=== PATIENT | male | born 1955 | race Caucasian/White ===

== ENCOUNTER → 2021-06-24 15:21 | Outpatient (BNVA) | payer BC, SELFPAY | PROVIDERS: Visit Provider Urology | DX: E29.1 Testicular hypofunction (principal); N52.01 Erectile dysfunction due to arterial insufficiency; N40.1 Benign prostatic hyperplasia with lower urinary tract symptoms; R35.1 Nocturia | CPT/HCPCS: 51798 ==

== ENCOUNTER → 2021-12-24 15:30 | Outpatient (BNVA) | payer BC, SELFPAY | PROVIDERS: PCP Internal Medicine; Visit Provider Urology | DX: E29.1 Testicular hypofunction (principal); N52.01 Erectile dysfunction due to arterial insufficiency | CPT/HCPCS: 51798 ==

== ENCOUNTER 2022-07-03 09:45 | Outpatient (AMB) | payer BC, SELFPAY ==
--- NOTE | 2022-07-03 09:55 | A.OFFVIS_ITS ---
Intake Intake Visit Reasons: 6 Months LABS(set) Intake Note: Patient is present for Telephone Follow up Urology Med: Testosterone, Sildenafil Blood Thinner: None Client Delivery Specialist Required: No Allergies No Known Allergies Allergy (Verified 03/03/23 09:24) HPI HPI Comments History of Present Illness Details Mr Bird is a very pleasant [place]ian male. They are a patient of Dr San. They are seen in the office today for the following urologic conditions. - Hypogonadism Telemedicine Evaluation 15 min Consultation D[employer] Katie Video attempted Last T is a little lower Double checked use of testosterone Had been using 0.3 cc Increased to 0.4 cc Repeat labs in 6 months Repeat prescription refilled as well sildenafil Hypogonadism:? Stable with current therapy Continue with weekly testosterone administration Review in 6 months with lab work ? He presents today for?further evaluation and followup of his hypogonadism, ?- prior evaluation previously with Dr. San. Testosterone approximately 250. Poor respondent to testosterone creams..? Initial symptoms include? erectile dysfunction ?Yes ? decreased libido ?Yes ? change in mood/depression ?Yes ? in muscle size/strength ?Yes ? increased fatigue/malaise ?Yes ? increased abdominal fat ?No ? tender breasts/gynecomastia ?No ? hair loss ?No ? osteopenia ?No ? The onset of symptoms has been?gradual, over the past few years.? Erectile status?baseline ARJUN Score, nocturnal erections occur but are not comparable to sexual stimulation.? Associate conditions include? obstructive sleep apnea ?No ? CAD ?No ? obesity ?No ? stress - financial, family, employment ?No ? heavy alcohol or illicit drug use ?No ? other ? Thyroid medication ? Laboratory results?baseline , testosterone < 250 ?- Feb 2016 , testosterone 295/344, , estradiol 16, , calculated bioavailable testosterone 150. Thyroid intact ?Testosterone - 04/19 384, 1 ?08/20 156,?09/18 267,?04/20 247 ?01/19 T 94, PSA 1.6, 07/23 T 842 PSA 7.2, 01/20 T 500, PSA 1.5. 12/24 T 260 PSA 0.5 47 - ? Current therapy includes?injectable exogenous testosterone - 0.35 2x per week.? Prior therapy includes?testosterone, injectable.? Diagnosis based on history and laboratory results?combined testicular insufficiency.? Therapeutic plan?Will test T levels in 6 months. Rx for TB syringes.? [facility] Medical History Elevated PSA Erectile dysfunction due to arterial insufficiency Hypogonadism in male Review of Systems Const All systems reviewed & are unremarkable except as noted in HPI and below Reports no additional complaints Resp Reports no additional complaints GI Reports no additional complaints Reports as per HPI Musc Reports no additional complaints Physical Exam Telemedicine evaluation Appropriate responses Regular breathing rate and rhythm HEENT Head: Yes normal to inspection Ears: hearing grossly normal bilaterally Eyes General: appearance normal, both eyes and all related structures Neck Neck: Yes normal visual inspection Chest Chest palpation & inspection: normal inspection of the chest Resp Effort & Inspection: normal respiratory effort and able to speak in complete sentences Assessment & Plan Assessment & Plan (1) Nocturia associated with benign prostatic hyperplasia: Code(s): N40.1 - Benign prostatic hyperplasia with lower urinary tract symptoms; R35.1 - Nocturia (2) Erectile dysfunction due to arterial insufficiency: Code(s): N52.01 - Erectile dysfunction due to arterial insufficiency Plan Low test testosterone Orders: Orders Testosterone, Total 6 Months E29.1 - Testicular hypofunction Complete Blood Count no Diff 6 Months E29.1 - Testicular hypofunction Prostate Specific Antigen 6 Months E29.1 - Testicular hypofunction Medications: New tadalafil 5 mg PO DAILY 90 tabs 0RF sexual activity 90 days Refilled testosterone cypionate (Depo-Testosterone) 80 mg (0.4 mL) subcut QWEEK 2 mL 5RF 4 weeks E29.1 - Testicular hypofunction, [id number] Patient Instructions: Imaging studies, laboratory and physical exam results were discussed and reviewed in detail. No major barriers to patient understanding were identified. An opportunity to ask questions regarding the treatment plan was provided. All questions were answered. The patient expressed understanding and agreement with the above treatment plan. The patient is aware they should contact our office by phone for worsening of their current condition or the appearance of new urologic symptoms. Compliance is encouraged with any medications and followup testing that is ordered. It is a privilege to participate in the urologic care of your patient. If you have any questions or concerns regarding treatment for the above conditions, or other urologic issues, please do not hesitate to contact me. The office telephone contact is [phone]. This note is constructed using voice recognition software. While every effort has been made to ensure accuracy potato chip maker errors may have been included. Yours sincerely, Dr Aldo Torres MD, [facility] - Urology Providers of Expert, Compassionate Care for the Genitourinary System Telehealth Telehealth Location of provider rendering services: practice address Location of patient: address on file Patient Identification confirmed using: Name, : Yes Telehealth method: video Patient verbally consented to treatment: Yes Patient verbally consented to billing insurance company: Yes Patient informed of any privacy concerns related to visit: Yes Coding Level of Care Code Tele Est Pt Level 3 (60845) Diagnoses Nocturia associated with benign prostatic hyperplasia N40.1; R35.1 Erectile dysfunction due to arterial insufficiency N52.01
== END 2022-07-03 12:34 | disposition home or self-care (01) ==
LOC: HO.HUSH 09:45
PROVIDERS: PCP Internal Medicine; Visit Provider Urology
DX: N40.1 Benign prostatic hyperplasia with lower urinary tract symptoms (principal); R35.1 Nocturia; N52.01 Erectile dysfunction due to arterial insufficiency
CPT/HCPCS: 99214

== ENCOUNTER → 2022-07-03 09:45 | Outpatient (BNVA) | payer BC, SELFPAY | PROVIDERS: PCP Internal Medicine; Visit Provider Urology | DX: Z13.89 Encounter for screening for other disorder (principal) ==

== ENCOUNTER 2023-03-03 09:15 | Outpatient (AMB) | payer MEDICARE, BC, SELFPAY ==
--- NOTE | 2023-03-03 09:23 | A.OFFVIS_ITS ---
Intake Intake Visit Reasons: 6M LABS(set) Intake Note: Patient is present for Telephone LABS Urology Med: Sildenafil, Tadalafil, Testosterone Antibiotic Allergy: None Blood Thinner: None Pharmacy: [facility] Allergies No Known Allergies Allergy (Verified 03/03/23 09:24) Medication List - Last Reconciled 03/03/23 by Aldo Torres MD ciclopirox 0.77% 1 appl topical DAILY levothyroxine 137 mcg PO DAILY needle (disp) 22 G (BD Regular [place]vel [place]) For testosterone injection weekly needle (disp) 25 gauge (BD Regular Bevel [place]) As directed - for testosterone subcutaneous injection syringe (disposable) (BD Luer-Arthur Syringe) Testosterone injection weekly syringe with needle (Monoject TB) As directed tadalafil 5 mg PO DAILY 90 days testosterone cypionate (Depo-Testosterone) 80 mg (0.4 mL) subcut QWEEK 4 weeks HPI HPI Comments History of Present Illness Details Mr Bird is a very pleasant [place] male. He is a patient of Dr San. He is seen for the following urologic conditions. - Hypogonadism - erectile dysfunction Telemedicine Evaluation 15 min Consultation [employer] Katie Video attempted Testosterone stable Prescription refilled Switch to daily tadalafil with on demand 10 mg Prescriptions provided Repeat labs in 6 months Hypogonadism:? Stable with current therapy Continue with weekly testosterone administration Review in 6 months with lab work ? He presents today for?further evaluation and followup of his hypogonadism, ?- prior evaluation previously with Dr. San. Testosterone approximately 250. Poor respondent to testosterone creams..? Initial symptoms include? erectile dysfunction ?Yes ? decreased libido ?Yes ? change in mood/depression ?Yes ? in muscle size/strength ?Yes ? increased fatigue/malaise ?Yes ? The onset of symptoms has been?gradual, over the past few years.? Erectile status?baseline ARJUN Score, nocturnal erections occur but are not comparable to sexual stimulation.? Associate conditions include? obstructive sleep apnea ?No ? CAD ?No ? obesity ?No ? stress - financial, family, employment ?No ? heavy alcohol or illicit drug use ?No ? other ? Thyroid medication ? Laboratory results?baseline , testosterone < 250 ?- Feb 2016 , testosterone 295/344, , estradiol 16, , calculated bioavailable testosterone 150. Thyroid intact ?Testosterone - 04/19 384, 1 ?08/20 156,?09/18 267,?04/20 247 ?01/19 T 94, PSA 1.6, 07/23 T 842 PSA 7.2, 01/20 T 500, PSA 1.5. 12/24 T 260 PSA 0.5 47 - ? Current therapy includes?injectable exogenous testosterone - 0.35 2x per week.? Prior therapy includes?testosterone, injectable.? Diagnosis based on history and laboratory results?combined testicular insufficiency.? Therapeutic plan?Will test T levels in 6 months. Rx for TB syringes.? [facility] Medical History Elevated PSA Erectile dysfunction due to arterial insufficiency Hypogonadism in male Review of Systems Const All systems reviewed & are unremarkable except as noted in HPI and below Reports no additional complaints Resp Reports no additional complaints GI Reports no additional complaints Reports as per HPI Musc Reports no additional complaints Physical Exam Telemedicine evaluation Appropriate responses Regular breathing rate and rhythm HEENT Head: Yes normal to inspection Ears: hearing grossly normal bilaterally Eyes General: appearance normal, both eyes and all related structures Neck Neck: Yes normal visual inspection Chest Chest palpation & inspection: normal inspection of the chest Resp Effort & Inspection: normal respiratory effort and able to speak in complete sentences Assessment & Plan Assessment & Plan (1) Hypogonadism in male: Code(s): E29.1 - Testicular hypofunction (2) Erectile dysfunction due to arterial insufficiency: Code(s): N52.01 - Erectile dysfunction due to arterial insufficiency (3) Nocturia associated with benign prostatic hyperplasia: Code(s): N40.1 - Benign prostatic hyperplasia with lower urinary tract symptoms; R35.1 - Nocturia Plan Six month follow-up labs office Orders: Orders Prostate Specific Antigen 6 Months E29.1 - Testicular hypofunction Testosterone, Total 6 Months E29.1 - Testicular hypofunction Complete Blood Count no Diff 6 Months E29.1 - Testicular hypofunction Medications: New tadalafil Take 1 tablet 60 minutes prior to intended activity 10 mg PO ONCE PRN 30 tabs 1RF sexual activity 30 days N52.9 - Male erectile dysfunction, unspecified Refilled testosterone cypionate (Depo-Testosterone) 80 mg (0.4 mL) subcut QWEEK 4 weeks 2 mL 5RF E29.1 - Testicular hypofunction, [id number] syringe (disposable) (BD Luer-Arthur Syringe) Testosterone injection weekly 30 ea 0RF E29.1 - Testicular hypofunction, E34.9 - Endocrine disorder, unspecified needle (disp) 25 gauge (BD Regular [place]vel [place]) As directed - for testosterone subcutaneous injection 30 ea 0RF E29.1 - Testicular hypofunction needle (disp) 22 G (BD Regular Bevel [place]) For testosterone injection weekly 30 ea 0RF E29.1 - Testicular hypofunction, E34.9 - Endocrine disorder, unspecified tadalafil 5 mg PO DAILY 90 days 90 tabs 1RF sexual activity Discontinued testosterone cypionate (Depo-Testosterone) Discontinued Reason: Patient no longer taking 100 mg (0.5 mL) subcut QWEEK 4 weeks 2 mL 5RF E29.1 - Testicular hypofunction, [id number] sildenafil administer 30 minutes to 4 hours before activity Discontinued Reason: Patient Completed Course 25 mg PO DAILY 30 days PRN 30 tabs 5RF sexual activity E29.1 - Testicular hypofunction Patient Instructions: Imaging studies, laboratory and physical exam results were discussed and reviewed in detail. No major barriers to patient understanding were identified. An opportunity to ask questions regarding the treatment plan was provided. All questions were answered. The patient expressed understanding and agreement with the above treatment plan. The patient is aware they should contact our office by phone for worsening of their current condition or the appearance of new urologic symptoms. Compliance is encouraged with any medications and followup testing that is ordered. It is a privilege to participate in the urologic care of your patient. If you have any questions or concerns regarding treatment for the above conditions, or other urologic issues, please do not hesitate to contact me. The office telephone contact is [phone]. This note is constructed using voice recognition software. While every effort has been made to ensure accuracy guidance secretary errors may have been included. Yours sincerely, Dr Aldo Torres MD, [facility] - Urology Providers of Expert, Compassionate Care for the Genitourinary System Telehealth Telehealth Location of provider rendering services: practice address Location of patient: address on file Patient Identification confirmed using: Name, : Yes Telehealth method: video Patient verbally consented to treatment: Yes Patient verbally consented to billing insurance company: Yes Patient informed of any privacy concerns related to visit: Yes Coding Level of Care Code Tele Est Pt Level 4 (98604) Diagnoses Hypogonadism in male E29.1 Erectile dysfunction due to arterial insufficiency N52.01 Nocturia associated with benign prostatic hyperplasia N40.1; R35.1
== END 2023-03-03 10:40 | disposition home or self-care (01) ==
LOC: HO.HUSH 09:15
PROVIDERS: PCP Internal Medicine; Visit Provider Urology
DX: E29.1 Testicular hypofunction (principal); N52.01 Erectile dysfunction due to arterial insufficiency; N40.1 Benign prostatic hyperplasia with lower urinary tract symptoms; R35.1 Nocturia
CPT/HCPCS: 99214

== ENCOUNTER → 2023-03-03 09:15 | Outpatient (BNVA) | payer BC, SELFPAY | PROVIDERS: PCP Internal Medicine; Visit Provider Urology ==

== ENCOUNTER 2023-09-02 09:48 | Outpatient (AMB) | payer MEDICARE, BC, SELFPAY ==
--- NOTE | 2023-09-02 10:14 | A.OFFVIS_ITS ---
Intake Intake Visit Reasons: 6M PSA/Testo/CBC(set) Confirmed Intake Note: Patient presents today for a follow-up Meds- Tadalafil, Testosterone Allergies to Antibiotic- No Known Allergies Blood Thinner- None Post Void Residual: 19 Chemical Tester Required: No Allergies No Known Allergies Allergy (Verified 09/02/23 10:15) Medication List - Last Reconciled 09/02/23 by Aldo Torres MD ciclopirox 0.77% 1 appl topical DAILY levothyroxine 112 mcg PO DAILY levothyroxine 112 mcg PO DAILY needle (disp) 22 G (BD Regular Bevel [place]) For testosterone injection weekly needle (disp) 25 gauge (BD Regular Bevel [place]) As directed - for testosterone subcutaneous injection syringe (disposable) (BD Luer-Arthur Syringe) Testosterone injection weekly syringe with needle (Monoject TB) As directed tadalafil 5 mg PO DAILY 90 days tadalafil 10 mg PO ONCE PRN 30 days testosterone cypionate (Depo-Testosterone) 80 mg (0.4 mL) subcut QWEEK 4 weeks HPI HPI Comments History of Present Illness Details Mr Bird is a very pleasant [place]ian male. He is a patient of Dr San. He is seen for the following urologic conditions. - Hypogonadism - erectile dysfunction Testosterone stable Prescription refilled Still response to daily tadalafil with on demand 10 mg Prescriptions provided Repeat labs in 6 months Hypogonadism:? Stable with current therapy Continue with weekly testosterone administration Review in 6 months with lab work ? He presents today for?further evaluation and followup of his hypogonadism, ?- prior evaluation previously with Dr. San. Testosterone approximately 250. Poor respondent to testosterone creams..? Initial symptoms include? erectile dysfunction ?Yes ? decreased libido ?Yes ? change in mood/depression ?Yes ? in muscle size/strength ?Yes ? increased fatigue/malaise ?Yes ? The onset of symptoms has been?gradual, over the past few years.? Erectile status?baseline ARJUN Score, nocturnal erections occur but are not comparable to sexual stimulation.? Associate conditions include? obstructive sleep apnea ?No ? CAD ?No ? obesity ?No ? stress - financial, family, employment ?No ? heavy alcohol or illicit drug use ?No ? other ? Thyroid medication ? Laboratory results?baseline , testosterone < 250 ?- Feb 2016 , testosterone 295/344, , estradiol 16, , calculated bioavailable testosterone 150. Thyroid intact ?Testosterone - 04/19 384, 1 ?08/20 156,?09/18 267,?04/20 247 ?01/19 T 94, PSA 1.6, 07/23 T 842 PSA 7.2, 01/20 T 500, PSA 1.5. 12/24 T 260 PSA 0.5 47, 08/28 T 265 - ? Current therapy includes?injectable exogenous testosterone - 0.35 2x per week.? Prior therapy includes?testosterone, injectable.? Diagnosis based on history and laboratory results?combined testicular insufficiency.? Therapeutic plan?Will test T levels in 6 months. Rx for TB syringes.? [facility] Medical History Elevated PSA Erectile dysfunction due to arterial insufficiency Hypogonadism in male Review of Systems Const Denies chills and Denies fever(s) Card Reports no additional complaints and Denies syncope Resp Denies cough GI Denies abdominal pain and Denies heartburn Reports as per HPI and Denies change in libido Neuro Denies syncope Psych Denies change in libido Endo Denies change in libido Physical Exam Const General: cooperative, healthy appearing, comfortable and no acute distress Orientation/consciousness: patient oriented x3 HEENT Face and sinus: Yes normal facial exam Mouth: moist mucous membranes Neck Neck: Yes normal visual inspection, Yes full ROM and Yes trachea midline Chest Chest palpation & inspection: normal inspection of the chest Resp Effort & Inspection: normal respiratory effort, able to speak in complete sentences and no respiratory distress GI Inspection: Yes normal to inspection Back/Spine/Pelvis Cervical Spine: normal cervical lordosis Thoracic/Lumbar Spine: thoracic and lumbar spine normal to inspection Skin General skin exam: no rashes or lesions noted Neuro General: patient oriented x3, gait normal, tone normal and moves all extremities Extrem General: Yes normal to inspection and Yes capillary refill normal Office Procedures Post Void Residual Post Residual Void Post Void Residual (PVR): 19 [id number]-[id number] Void Residual by ultrasound Assessment & Plan Assessment & Plan (1) Nocturia associated with benign prostatic hyperplasia: Code(s): N40.1 - Benign prostatic hyperplasia with lower urinary tract symptoms; R35.1 - Nocturia (2) Erectile dysfunction due to arterial insufficiency: Code(s): N52.01 - Erectile dysfunction due to arterial insufficiency (3) Hypogonadism in male: Code(s): E29.1 - Testicular hypofunction Plan Six-month follow-up labs tele Orders: Orders Complete Blood Count no Diff 6 Months E29.1 - Testicular hypofunction AMB Post Void Residual by ultrasound Today R33.9 - Retention of urine, unspecified Prostate Specific Antigen 6 Months E29.1 - Testicular hypofunction Testosterone, Total 6 Months E29.1 - Testicular hypofunction Patient Instructions: Imaging studies, laboratory and physical exam results were discussed and reviewe d in detail. No major barriers to patient understanding were identified. An opportunity to ask questions regarding the treatment plan was provided. All questions were answered. The patient expressed understanding and agreement with the above treatment plan. The patient is aware they should contact our office by phone for worsening of their current condition or the appearance of new urologic symptoms. Compliance is encouraged with any medications and followup testing that is ordered. It is a privilege to participate in the urologic care of your patient. If you have any questions or concerns regarding treatment for the above conditions, or other urologic issues, please do not hesitate to contact me. The office telephone contact is [phone]. This note is constructed using voice recognition software. While every effort has been made to ensure accuracy inspector watch assembly errors may have been included. Yours sincerely, Dr Aldo Torres MD, [facility] - Urology Providers of Expert, Compassionate Care for the Genitourinary System Coding Level of Care Code Est Pt Level 4 (42385) Diagnoses Nocturia associated with benign prostatic hyperplasia N40.1; R35.1 Erectile dysfunction due to arterial insufficiency N52.01 Hypogonadism in male E29.1 CPT Codes Post Residual Void - PVR CPT Code: 12035-Cmxg Void Residual by ultrasound ([id number])
== END 2023-09-02 10:33 | disposition home or self-care (01) ==
PROVIDERS: PCP Internal Medicine; Visit Provider Urology
DX: N40.1 Benign prostatic hyperplasia with lower urinary tract symptoms (principal); R35.1 Nocturia; N52.01 Erectile dysfunction due to arterial insufficiency; E29.1 Testicular hypofunction
CPT/HCPCS: 99213

== ENCOUNTER → 2023-09-02 09:48 | Outpatient (BNVA) | payer MEDICARE, BC, SELFPAY | PROVIDERS: PCP Internal Medicine; Visit Provider Urology | DX: E29.1 Testicular hypofunction (principal); N40.1 Benign prostatic hyperplasia with lower urinary tract symptoms; R33.8 Other retention of urine; R35.1 Nocturia; N52.01 Erectile dysfunction due to arterial insufficiency | CPT/HCPCS: 51798; 99212 ==

== ENCOUNTER 2024-04-18 08:53 | Outpatient (AMB) | payer MEDICARE, BC, SELFPAY ==
--- NOTE | 2024-04-18 08:49 | A.OFFVIS_ITS ---
Intake Visit Reasons: PSA/CBC/Testo Follow Up(testo pending)[facility] Intake Note: Patient is present for PSA/CBC/TESTO F/U Urology Medication:TADALAFIL, LEVOTHYROXINE Antibiotic Allergy:NONE Blood Thinner:NONE Telephone Station Repairer Required: No Allergies No Known Allergies Allergy (Verified 04/18/24 08:50) Medication List - Last Reconciled 04/18/24 by Aldo Torres MD ciclopirox 0.77% 1 appl topical DAILY levothyroxine 112 mcg PO DAILY levothyroxine 112 mcg PO DAILY needle (disp) 22 G (BD Regular [place]) For testosterone injection weekly needle (disp) 25 gauge (BD Regular [place]vel [place]) As directed - for testosterone subcutaneous injection syringe (disposable) (BD Luer-Arthur Syringe) Testosterone injection weekly syringe with needle (Monoject TB) As directed tadalafil 10 mg PO ONCE PRN 30 days tadalafil 5 mg PO DAILY 90 days testosterone cypionate (Depo-Testosterone) 80 mg (0.4 mL) subcut QWEEK 4 weeks HPI Comments Details: Mr Bird is a very pleasant Japanese male. He is a patient of Dr San. He is seen for the following urologic conditions. - Hypogonadism - erectile dysfunction Telemedicine Evaluation 15 min Consultation [facility] Katie Video Testosterone stable Prescription refilled Still response to daily tadalafil with on demand 10 mg Prescriptions provided Repeat labs in 6 months Hypogonadism:? Stable with current therapy Continue with weekly testosterone administration Review in 6 months with lab work ? He presents today for?further evaluation and followup of his hypogonadism, ?- prior evaluation previously with Dr. San. Testosterone approximately 250. Poor respondent to testosterone creams..? Initial symptoms include? erectile dysfunction ?Yes ? decreased libido ?Yes ? change in mood/depression ?Yes ? in muscle size/strength ?Yes ? increased fatigue/malaise ?Yes ? The onset of symptoms has been?gradual, over the past few years.? Erectile status?baseline ARJUN Score, nocturnal erections occur but are not comparable to sexual stimulation.? Associate conditions include? obstructive sleep apnea ?No ? CAD ?No ? obesity ?No ? stress - financial, family, employment ?No ? heavy alcohol or illicit drug use ?No ? other ? Thyroid medication ? Laboratory results?baseline , testosterone < 250 ?- Feb 2016 , testosterone 295/344, , estradiol 16, , calculated bioavailable testosterone 150. Thyroid intact ?Testosterone - 04/19 384, 1 ?08/20 156,?09/18 267,?04/20 247 ?01/19 T 94, PSA 1.6, 07/23 T 842 PSA 7.2, 01/20 T 500, PSA 1.5. 12/24 T 260 PSA 0.5 47, 08/28 T 265, 04/27 pending T - ? Current therapy includes?injectable exogenous testosterone - 0.35 2x per week.? Prior therapy includes?testosterone, injectable.? Diagnosis based on history and laboratory results?combined testicular insufficiency.? Therapeutic plan?Will test T levels in 6 months. Rx for TB syringes.? [facility] Medical History Elevated PSA Erectile dysfunction due to arterial insufficiency Hypogonadism in male Review of Systems Const All systems reviewed & are unremarkable except as noted in HPI and below Reports no additional complaints Resp Reports no additional complaints GI Reports no additional complaints Reports as per HPI Musc Reports no additional complaints Physical Exam Telemedicine evaluation Appropriate responses Regular breathing rate and rhythm HEENT Head: Yes normal to inspection Ears: hearing grossly normal bilaterally Eyes General: appearance normal, both eyes and all related structures Neck Neck: Yes normal visual inspection Chest Chest palpation & inspection: normal inspection of the chest Resp Effort & Inspection: normal respiratory effort and able to speak in complete sentences Telehealth Telehealth Location of provider rendering services: practice address Location of patient: address on file Patient Identification confirmed using: Name, : Yes Telehealth method: voice only Patient verbally consented to treatment: Yes Patient verbally consented to billing insurance company: Yes Patient informed of any privacy concerns related to visit: Yes Assessment & Plan Assessment & Plan (1) Hypogonadism in male: Code(s): E29.1 - Testicular hypofunction Category: Medical (2) Erectile dysfunction due to arterial insufficiency: Code(s): N52.01 - Erectile dysfunction due to arterial insufficiency Category: Medical (3) Nocturia associated with benign prostatic hyperplasia: Code(s): N40.1 - Benign prostatic hyperplasia with lower urinary tract symptoms; R35.1 - Nocturia Category: Medical Plan Six-month follow-up Orders: Orders Prostate Specific Antigen 6 Months E29.1 - Testicular hypofunction Testosterone, Total 6 Months E29.1 - Testicular hypofunction Complete Blood Count no Diff 6 Months E29.1 - Testicular hypofunction Medications: Refilled tadalafil Take 1 tablet 60 minutes prior to intended activity 10 mg PO ONCE 30 days PRN 30 tabs 1RF sexual activity N52.9 - Male erectile dysfunction, unspecified tadalafil 5 mg PO DAILY 90 days 90 tabs 1RF sexual activity E29.1 - Testicular hypofunction testosterone cypionate (Depo-Testosterone) Dispose of partial filled vial after injection 80 mg (0.4 mL) subcut QWEEK 4 weeks 4 mL 5RF E29.1 - Testicular hypofunction, [id number] Patient Instructions: Imaging studies, laboratory and physical exam results were discussed and reviewed in detail. No major barriers to patient understanding were identified. An opportunity to ask questions regarding the treatment plan was provided. All questions were answered. The patient expressed understanding and agreement with the above treatment plan. The patient is aware they should contact our office by phone for worsening of their current condition or the appearance of new urologic symptoms. Compliance is encouraged with any medications and followup testing that is ordered. It is a privilege to participate in the urologic care of your patient. If you have any questions or concerns regarding treatment for the above conditions, or other urologic issues, please do not hesitate to contact me. The office telephone contact is [phone]. This note is constructed using voice recognition software. While every effort has been made to ensure accuracy solicitor patent errors may have been included. Yours sincerely, Dr Aldo Torres MD, [facility] - Urology Providers of Expert, Compassionate Care for the Genitourinary System Coding Level of Care Code Tele Est Pt Level 3 (82991) Diagnoses Hypogonadism in male E29.1 Erectile dysfunction due to arterial insufficiency N52.01 Nocturia associated with benign prostatic hyperplasia N40.1; R35.1
== END 2024-04-18 13:40 | disposition home or self-care (01) ==
LOC: HO.HUSH 08:53
PROVIDERS: PCP Internal Medicine; Visit Provider Urology
DX: E29.1 Testicular hypofunction (principal); N52.01 Erectile dysfunction due to arterial insufficiency; N40.1 Benign prostatic hyperplasia with lower urinary tract symptoms; R35.1 Nocturia
CPT/HCPCS: 99442

== ENCOUNTER → 2024-04-18 08:53 | Outpatient (BNVA) | payer MEDICARE, BC, SELFPAY | PROVIDERS: PCP Internal Medicine; Visit Provider Urology ==

== ENCOUNTER 2024-10-24 10:30 | Outpatient (AMB) | payer MEDICARE, BC, SELFPAY ==
--- NOTE | 2024-10-24 10:50 | A.OFFVIS_ITS ---
Intake Visit Reasons: 6M PSA/CBC/Testo Follow Up(testo pending)[facility] Intake Note: Adria 69 yr old male presents today for his 6 month follow up visit s/p PSA, CBC and testosterone. Allergies No Known Allergies Allergy (Verified 10/24/24 10:54) HPI Comments Details: Mr Bird is a very pleasant [place] male. He is a patient of Dr San. He is seen for the following urologic conditions. - Hypogonadism - erectile dysfunction Discussed results Has needle phobia will trial testosterone gel again Has been waking at night - trial tamsulosin Also noted with inability to maintain erection Increase on demand tadalafil to 20 mg Lower urinary tract symptoms Nocturia x3 No prior medications Hypogonadism:? Stable with current therapy Continue with weekly testosterone administration Review in 6 months with lab work ? He presents today for?further evaluation and followup of his hypogonadism, ?- prior evaluation previously with Dr. San. Testosterone approximately 250. Poor respondent to testosterone creams..? Initial symptoms include? erectile dysfunction ?Yes ? decreased libido ?Yes ? change in mood/depression ?Yes ? in muscle size/strength ?Yes ? increased fatigue/malaise ?Yes ? The onset of symptoms has been?gradual, over the past few years.? Erectile status?baseline ARJUN Score, nocturnal erections occur but are not comparable to sexual stimulation.? Laboratory results?baseline , testosterone < 250 ?- Feb 2016 , testosterone 295/344, , estradiol 16, , calculated bioavailable testosterone 150. Thyroid intact ?Testosterone - 04/19 384, 1 ?08/20 156,?09/18 267,?04/20 247 ?01/19 T 94, PSA 1.6, 07/23 T 842 PSA 7.2, 01/20 T 500, PSA 1.5. 12/24 T 260 PSA 0.5 47, 08/28 T 265, 04/27 pending T. 08/29 281 0.9 43 - ? Current therapy includes?injectable exogenous testosterone - 0.35 2x per week.? Prior therapy includes?testosterone, injectable.? Diagnosis based on history and laboratory results?combined testicular insufficiency.? - Trial AndroGel repeat [facility] Medical History Elevated PSA Erectile dysfunction due to arterial insufficiency Hypogonadism in male Review of Systems Const Denies chills and Denies fever(s) Card Reports no additional complaints and Denies syncope Resp Denies cough GI Denies abdominal pain and Denies heartburn Reports as per HPI and Denies change in libido Neuro Denies syncope Psych Denies change in libido Endo Denies change in libido Physical Exam Const General: cooperative, healthy appearing, comfortable and no acute distress Orientation/consciousness: patient oriented x3 HEENT Face and sinus: Yes normal facial exam Mouth: moist mucous membranes Neck Neck: Yes normal visual inspection, Yes full ROM and Yes trachea midline Chest Chest palpation & inspection: normal inspection of the chest Resp Effort & Inspection: normal respiratory effort, able to speak in complete sentences and no respiratory distress GI Inspection: Yes normal to inspection Back/Spine/Pelvis Cervical Spine: normal cervical lordosis Thoracic/Lumbar Spine: thoracic and lumbar spine normal to inspection Skin General skin exam: no rashes or lesions noted Neuro General: patient oriented x3, gait normal, tone normal and moves all extremities Extrem General: Yes normal to inspection and Yes capillary refill normal Assessment & Plan Assessment & Plan (1) Hypogonadism in male: Code(s): E29.1 - Testicular hypofunction Category: Medical (2) Erectile dysfunction due to arterial insufficiency: Code(s): N52.01 - Erectile dysfunction due to arterial insufficiency Category: Medical (3) Nocturia associated with benign prostatic hyperplasia: Code(s): N40.1 - Benign prostatic hyperplasia with lower urinary tract symptoms; R35.1 - Nocturia Category: Medical Plan Trial Flomax Trial gel Three-month labs tele Orders: Orders Testosterone, Total 3 Months E29.1 - Testicular hypofunction Medications: New tamsulosin (Flomax) 0.4 mg PO BEDTIME 30 tabs 1RF 30 days E29.1 - Testicular hypofunction testosterone apply 2 pumps over max area - alternate shoulders on alternate days 2 pumps topical DAILY 30 days 75 grams 2RF E29.1 - Testicular hypofunction, R79.89 - Other specified abnormal findings of blood chemistry testosterone apply 2 pumps over max area - alternate shoulders on alternate days 3 pumps topical DAILY 150 grams 2RF 30 days E29.1 - Testicular hypofunction, R79.89 - Other specified abnormal findings of blood chemistry Changed From tadalafil Take 1 tablet 60 minutes prior to intended activity 10 mg PO ONCE 30 days PRN 30 tabs 1RF sexual activity N52.9 - Male erectile dysfunction, unspecified To tadalafil Take 1 tablet 60 minutes prior to intended activity 20 mg PO ONCE PRN 30 tabs 1RF sexual activity 30 days N52.9 - Male erectile dysfunction, unspecified Refilled tadalafil 5 mg PO DAILY 90 tabs 1RF sexual activity 90 days E29.1 - Testicular hypofunction Discontinued testosterone cypionate (Depo-Testosterone) Dispose of partial filled vial after injection Discontinued Reason: Patient Completed Course 80 mg (0.4 mL) subcut QWEEK 4 weeks 4 mL 5RF E29.1 - Testicular hypofunction, [id number] Patient Instructions: This note is constructed using voice recognition software. While every effort h as been made to ensure accuracy date night caregiver errors may have been included. Imaging studies, laboratory and physical exam results were discussed and reviewed in detail. No major barriers to patient understanding were identified. An opportunity to ask questions regarding the treatment plan was provided. All questions were answered. The patient expressed understanding and agreement with the above treatment plan. The patient is aware they should contact our office by phone for worsening of their current condition or the appearance of new urologic symptoms. Compliance is encouraged with any medications and followup testing that is ordered. It is a privilege to participate in the urologic care of your patient. If you have any questions or concerns regarding treatment for the above conditions, or other urologic issues, please do not hesitate to contact me. The office telephone contact is [phone]. Sincerely, Dr Aldo Torres MD, [facility] - Urology Compassionate Specialist Care for the Genitourinary System Coding Level of Care Code Est Pt Level 4 (60149) Complex EM visit Add On G2211 Diagnoses Hypogonadism in male E29.1 Erectile dysfunction due to arterial insufficiency N52.01 Nocturia associated with benign prostatic hyperplasia N40.1; R35.1
--- OUTSIDE RECORDS SUMMARY | 2024-10-24 12:15 | XMS_ITS | Clinical Summary ---
Author Organization [facility] Address [address] [place] [address] Care Team Providers Care Rheumatologist Name Role Phone Corwin San MD Primary Care Provider Medical History Medical History Date Comments Asthma DX:Asthma Friedman's palsy DX:Friedman's palsy Eczema DX:Eczema Hearing loss DX:Hearing loss Hypogonadism male DX:Hypogonadis m male Hypothyroidism DX:Hypothyroidis m Class 1 obesity DX:Class 1 obesi ty KRISTIE (obstructive sleep apnea) DX :KRISTIE (obstructive sleep apnea) Perennial allergic rhinitis DX:P erennial allergic rhinitis Positive PPD DX:Positive PPD Right Achilles tendinitis DX:Rig ht Achilles tendinitis Zenker diverticulum DX:Zenker di verticulum Family History Medical History Relation Name Comments Other: cardiovascular disease Father Relation Name Status Comments Father Social History Tobacco Use Types Packs/Day Years Used Date Smoking Tobacco: Never Assessed Sex and Gender Information Value Date Recorded Sex Assigned at Not on file Legal Sex Male 1:50 AM EST Gender Identity Not on file Sexual Orientation Not on file Obstetrics History Plan of Treatment Health Maintenance Due Date Last Done Comments DTaP,Tdap,and Td Vaccines (1 - Tdap) 1973 Pneumococcal Vaccine: 50+ Ye ars (1 of 1 - PCV) 02/04/2004 Zoster Vaccines (1 of 2) 02/04/2004 Abdominal Aortic Aneurysm (A AA) Screen 08/04/2023 Cholesterol Screening (Lipid Panel) 08/04/2023 Colorectal Cancer Screening: Colonoscopy 08/04/2023 Depression Screening 08/04/2023 Falls Risk Assessment 08/04/2023 Hepatitis C Screening 08/04/2023 Social Influencers of Health Screening 08/04/2023 COVID-19 Vaccine (2023-2 5 season) 2024 Influenza Vaccine (Season Ended) 2025 RSV Immunization Adult Patie nts (1 - 1-dose 75+ series) 2029 HIB Vaccines Aged Out No longer eligi ble based on patient's age to complete this topic HPV Vaccines Aged Out No longer eligi ble based on patient's age to complete this topic Hepatitis A Vaccines Aged Out No long er eligible based on patient's age to complete this topic Hepatitis B Vaccines Aged Out No long er eligible based on patient's age to complete this topic IPV Vaccines Aged Out No longer eligi ble based on patient's age to complete this topic MMR Vaccines Aged Out No longer eligi ble based on patient's age to complete this topic Meningococcal ACWY Vaccine Aged Out N o longer eligible based on patient's age to complete this topic Meningococcal B Vaccine Aged Out No l onger eligible based on patient's age to complete this topic RSV Immunization Patients Un michelle 20 months Aged Out No longer eligible b ased on patient's age to complete this topic Varicella Vaccines Aged Out No longer eligible based on patient's age to complete this topic Care Teams Rheumatologist Relationship Specialty Start Date End Date Corwin San MD [address] [facility] [address] [place], [place] PCP - General Internal Medicine 02/25/17
--- OUTSIDE RECORDS SUMMARY | 2024-10-24 12:15 | XMS_ITS ---
Author Name [facility] Organization Unknown Problems Problem Status Onset Date Problem Type Date of Resoluti on Source Chest discomfort active EncounterDiagnosisAct CCT Encounters Encounter Type Encounter Reason Primary Diagnosis Location Date Ambulatory Harvey driscoll MD, [facility] 02/22/2023 Ambulatory Harvey driscoll MD, [facility] 01/17/2023 Ambulatory Harvey driscoll MD, [facility] 01/15/2023 Ambulatory Harvey driscoll MD, [facility] 12/03/2022 [email or web address] Care Team Organization Name Specialty Phone Email Start Date End Da te Harvey Tillman MD, [facility] 10/25[facility]
--- OUTSIDE RECORDS SUMMARY | 2024-10-24 12:15 | XMS_ITS | Clinical Summary ---
Author Organization [facility] Address [address] [place] [address] Care Team Providers Care Conche Operator Name Role Phone Unknown Primary Care Provider [phone] Allergies No known active allergies Medications No known medications Active Problems No known active problems Social History Tobacco Use Types Packs/Day Years Used Date Smoking Tobacco: Never Assessed Sex and Gender Information Value Date Recorded Sex Assigned at Not on file Legal Sex Male 9:29 AM EDT Gender Identity Not on file Sexual Orientation Not on file Last Filed Vital Signs Vital Sign Reading Time Taken Comments Blood Pressure 135/74 10/25/2022 10:13 AM EDT Pulse 75 10/25/2022 10:13 AM EDT Temperature 36.5 ??C (97.7 ??F) 10/25/2022 10:13 AM E DT Respiratory Rate - - Oxygen Saturation 96% 10/25/2022 10:13 AM EDT Inhaled Oxygen Concentration - - Weight 92.1 kg (203 lb) 10/25/2022 10:13 AM EDT Height - - Body Mass Index - - Plan of Treatment Health Maintenance Due Date Last Done Comments Hepatitis C Virus Screening 1955 DTaP/Tdap/Td Vaccines (1 - Tdap) 1973 Colonoscopy 1999 Pneumococcal Vaccines 50+ (1 of 1 - PCV) 02/04/2004 Zoster (Shingles) Vaccine (1 of 2) 02/04/2004 Influenza Vaccine 2024 04/03/2020 COVID-19 Vaccine (3 - 2023-2 5 season) 2024 11/01/2020, 10/04/2020 RSV Vaccine 60 years and older and Patients (1 - 1-dose 75+ series) 2029 Hepatitis B Vaccines Aged Out No long er eligible based on patient's age to complete this [place] [place] [address] MEDICARE PART A & B [facility] Care Teams Conche Operator Relationship Specialty Start Date End Date Unknown Unknow Provider Address PCP - General 10/25/22
--- OUTSIDE RECORDS SUMMARY | 2024-10-24 12:15 | XMS_ITS | Clinical Summary ---
Author Organization [facility] Address [address] [place] [address] Care Team Providers Care Unhairing Machine Operator Name Role Phone Corwin San MD Primary Care Provider [phone] Allergies No known active allergies Medications Medication Sig Dispensed Refills Start Date End Date Status levothyroxine (SYNTHROID, LEVOXYL) tablet 100 mcg Take 100 mcg by mouth daily. 0 10/15/2017 Active sildenafil (REVATIO) 20 MG tablet TAKE 1 OR 2 TABLETS BY MOUTH DAILY NEEDED 0 08/17/2017 Active testosterone cypionate (DEPO-TESTOSTERONE CYPIONATE) injection 200 mg/mL INJECT 1.25ML ONCE A WEEK FOR 30 DAYS 3 08/25/2017 Active levothyroxine (SYNTHROID, LEVOXYL) tablet 137 mcg TAKE 1 TABLET BY MOUTH ONCE A DAY CHECK THYROID LEVEL IN 6 WEEKS 1 06/03/2018 Active Active Problems Problem Noted Date Diagnosed Date Shoulder weakness 07/13/2018 Postop check 02/25/2018 Acute pain of right shoulder 11/24/2017 Social History Tobacco Use Types Packs/Day Years Used Date Smoking Tobacco: Unknown Tobacco Cessation:Counseling Given: Not Answered Alcohol Use Standard Drinks/Week Comments No 0 (1 standard drink = 0.6 oz pur e alcohol) Sex and Gender Information Value Date Recorded Sex Assigned at Male 10/27/2022 1:16 PM EDT Gender Identity Not on file Sexual Orientation Not on file Job Start Date Occupation Industry Not on file Not on file Not on file Last Filed Vital Signs Vital Sign Reading Time Taken Comments Blood Pressure 140/87 10/27/2022 3:04 PM EDT Pulse 71 10/27/2022 3:04 PM EDT Temperature 36.6 ??C (97.9 ??F) 10/27/2022 3:04 PM ED T Respiratory Rate 17 10/27/2022 3:04 PM EDT Oxygen Saturation 95% 10/27/2022 3:04 PM EDT Inhaled Oxygen Concentration - - Weight 92.1 kg (203 lb) 10/27/2022 1:06 PM EDT Height 165.1 cm (5' 5 ) 10/27/2022 1:06 PM EDT Body Mass Index 33.78 10/27/2022 1:06 PM EDT Plan of Treatment Health Maintenance Due Date Last Done Comments Hepatitis C Screening 1955 COVID-19 Vaccine (#1) 1954 Depression Screening 1966 Preventative Health Evaluation 02/04/1972 Colon Cancer Screening (Colonoscopy) 1999 Shingrix-Zoster Vaccine (1 of 2) 02/04/2004 Fall Risk Assessment 2019 Pneumococcal Vaccine (1 of 1 - PCV) 2019 Influenza Vaccine (#1) 2024 2, 04/02/2021, 04/03/2020, Additional history exists DTap / Tdap / Td (2 - Td or Tdap) 01/29/2028 01/28/2018 RSV Adult > 60+ Yrs or (1 - 1-dose 75+ series) 2029 Hepatitis B Vaccines Aged Out No long er eligible based on patient's age to complete this topic RSV Ped < 20 months Aged Out No longe r eligible based on patient's age to complete this topic Care Teams Unhairing Machine Operator Relationship Specialty Start Date End Date Corwin San MD PCP - General Internal Medicine 02/25/17
== END 2024-10-24 11:18 | disposition home or self-care (01) ==
LOC: HO.HUSH 10:30
PROVIDERS: PCP Internal Medicine; Visit Provider Urology
DX: E29.1 Testicular hypofunction (principal); N52.01 Erectile dysfunction due to arterial insufficiency; N40.1 Benign prostatic hyperplasia with lower urinary tract symptoms; R35.1 Nocturia
CPT/HCPCS: 99214; G2211

== ENCOUNTER → 2024-10-24 10:30 | Outpatient (BNVA) | payer MEDICARE, BC, SELFPAY | PROVIDERS: PCP Internal Medicine; Visit Provider Urology | DX: E29.1 Testicular hypofunction (principal); N52.9 Male erectile dysfunction, unspecified; N52.01 Erectile dysfunction due to arterial insufficiency; N40.1 Benign prostatic hyperplasia with lower urinary tract symptoms; R35.1 Nocturia; R79.89 Other specified abnormal findings of blood chemistry | CPT/HCPCS: 99212 ==

== ENCOUNTER 2025-03-06 10:01 | Outpatient (AMB) | payer MEDICARE, BC, SELFPAY ==
--- NOTE | 2025-03-06 10:02 | A.OFFVIS_ITS ---
Intake Visit Reasons: 3m/Testo Intake Note: pt presents today for: telehealth 3mo follow up urology medications: tadalafil, tamsulosin, testosterone blood thinners: none labs done 02/15/25: testo 176 Auto Glass Worker Required: No Accompanied by: Self / Same As Patient Allergies No Known Allergies Allergy (Verified 03/06/25 10:02) HPI Comments Details: Mr Bird is a very pleasant Armenian male. He is a patient of Dr San. He is seen for the following urologic conditions. - Hypogonadism - erectile dysfunction Telemedicine Evaluation 15 min Consultation [employer] Katie Video Six-month follow-up Has been on testosterone gel Tamsulosin for LUTS On demand tadalafil 20 mg Minimal benefit from tamsulosin for nocturia with weakness of stream Recommend trial terazosin with three-month follow-up office uroflow Lower urinary tract symptoms Nocturia x3 No prior medications Hypogonadism:? Stable with current therapy Continue with weekly testosterone administration Review in 6 months with lab work ? He presents today for?further evaluation and followup of his hypogonadism, ?- prior evaluation previously with Dr. San. Testosterone approximately 250. Poor respondent to testosterone creams..? Initial symptoms include? erectile dysfunction ?Yes ? decreased libido ?Yes ? change in mood/depression ?Yes ? in muscle size/strength ?Yes ? increased fatigue/malaise ?Yes ? The onset of symptoms has been?gradual, over the past few years.? Erectile status?baseline ARJUN Score, nocturnal erections occur but are not comparable to sexual stimulation.? Laboratory results?baseline , testosterone < 250 ?- Feb 2016 , testosterone 295/344, , estradiol 16, , calculated bioavailable testosterone 150. Thyroid intact ?Testosterone - 04/19 384, 1 ?08/20 156,?09/18 267,?04/20 247 ?01/19 T 94, PSA 1.6, 07/23 T 842 PSA 7.2, 01/20 T 500, PSA 1.5. 12/24 T 260 PSA 0.5 47, 08/28 T 265, 04/27 pending T. 08/29 281 0.9 43, 02/26 176 - ? Current therapy includes?injectable exogenous testosterone - 0.35 2x per week.? Prior therapy includes?testosterone, injectable.? Diagnosis based on history and laboratory results?combined testicular insufficiency.? - Trial AndroGel repeat [facility] Medical History Elevated PSA Erectile dysfunction due to arterial insufficiency Hypogonadism in male Review of Systems Const Denies chills and Denies fever(s) Card Reports no additional complaints and Denies syncope Resp Denies cough GI Denies abdominal pain and Denies heartburn Reports as per HPI and Denies change in libido Neuro Denies syncope Psych Denies change in libido Endo Denies change in libido Physical Exam Const General: cooperative, healthy appearing, comfortable and no acute distress Orientation/consciousness: patient oriented x3 HEENT Face and sinus: Yes normal facial exam Mouth: moist mucous membranes Neck Neck: Yes normal visual inspection, Yes full ROM and Yes trachea midline Chest Chest palpation & inspection: normal inspection of the chest Resp Effort & Inspection: normal respiratory effort, able to speak in complete sentences and no respiratory distress GI Inspection: Yes normal to inspection Back/Spine/Pelvis Cervical Spine: normal cervical lordosis Thoracic/Lumbar Spine: thoracic and lumbar spine normal to inspection Skin General skin exam: no rashes or lesions noted Neuro General: patient oriented x3, gait normal, tone normal and moves all extremities Extrem General: Yes normal to inspection and Yes capillary refill normal Telehealth Telehealth Telehealth Platform: [facility] Location of provider rendering services: practice address Location of patient: address on file Patient Identification confirmed using: Name, : Yes Telehealth method: video Patient verbally consented to treatment: Yes Patient verbally consented to billing insurance company: Yes Patient informed of any privacy concerns related to visit: Yes Minutes spent on Phone/Video with Pt.: 15 Assessment & Plan Assessment & Plan (1) Erectile dysfunction due to arterial insufficiency: Code(s): N52.01 - Erectile dysfunction due to arterial insufficiency Category: Medical (2) Nocturia associated with benign prostatic hyperplasia: Code(s): N40.1 - Benign prostatic hyperplasia with lower urinary tract symptoms; R35.1 - Nocturia Category: Medical Plan Trial terazosin Three-month follow-up uroflow office Medications: New terazosin 5 mg PO BEDTIME 30 caps 2RF 30 days Refilled testosterone apply 2 pumps over max area - alternate shoulders on alternate days 3 pumps topical DAILY 150 grams 5RF 30 days E29.1 - Testicular hypofunction, R79.89 - Other specified abnormal findings of blood chemistry tadalafil 5 mg PO DAILY 90 tabs 1RF sexual activity 90 days E29.1 - Testicular hypofunction tadalafil Take 1 tablet 60 minutes prior to intended activity 20 mg PO ONCE PRN 30 tabs 1RF sexual activity 30 days N52.9 - Male erectile dysfunction, unspecified Discontinued syringe with needle (Monoject TB) Discontinued Reason: Patient Completed Course As directed 12 ea 0RF Testosterone injection E29.1 - Testicular hypofunction needle (disp) 25 gauge (BD Regular Bevel Hornitos) Discontinued Reason: Doctor's Order As directed - for testosterone subcutaneous injection 30 ea 0RF E29.1 - Testicular hypofunction tamsulosin (Flomax) Discontinued Reason: Doctor's Order 0.4 mg PO BEDTIME 30 days 30 tabs 1RF E29.1 - Testicular hypofunction needle (disp) 22 G Discontinued Reason: Doctor's Order For testosterone injection weekly 30 ea 0RF E29.1 - Testicular hypofunction, E34.9 - Endocrine disorder, unspecified syringe (disposable) (BD Luer-Arthur Syringe) Discontinued Reason: Patient Completed Course Testosterone injection weekly 30 ea 0RF E29.1 - Testicular hypofunction, E34.9 - Endocrine disorder, unspecified Patient Instructions: This note is constructed using voice recognition software. While every effort has been made to ensure accuracy rn testing errors may have been included. Imaging studies, laboratory and physical exam results were discussed and reviewed in detail. No major barriers to patient understanding were identified. An opportunity to ask questions regarding the treatment plan was provided. All questions were answered. The patient expressed understanding and agreement with the above treatment plan. The patient is aware they should contact our office by phone for worsening of their current condition or the appearance of new urologic symptoms. Compliance is encouraged with any medications and followup testing that is ordered. It is a privilege to participate in the urologic care of your patient. If you have any questions or concerns regarding treatment for the above conditions, or other urologic issues, please do not hesitate to contact me. The office telephone contact is [phone]. Sincerely, Dr Aldo Torres MD, [facility] - Urology Compassionate Specialist Care for the Genitourinary System Coding Level of Care Code Tele Est Pt Level 4 (41163) Complex EM visit Add On G2211 Diagnoses Erectile dysfunction due to arterial insufficiency N52.01 Nocturia associated with benign prostatic hyperplasia N40.1; R35.1
--- OUTSIDE RECORDS SUMMARY | 2025-03-06 11:22 | XMS_ITS ---
Author Name [facility] Organization Unknown Problems Problem Status Onset Date Problem Type Date of Resoluti on Source Chest discomfort active EncounterDiagnosisAct CCT Encounters Encounter Type Encounter Reason Primary Diagnosis Location Date Ambulatory Harvey driscoll MD, [facility] 02/22/2023 Ambulatory Harvey driscoll MD, [facility] 01/17/2023 Ambulatory Harvey driscoll MD, [facility] 01/15/2023 Ambulatory Harvey driscoll MD, [facility] 12/03/2022 [facility] Care Team Organization Name Specialty Phone Email Start Date End Da te Harvey Tillman MD, [facility] 12/03 [facility] 10/25/2022 10/25/2022 [facility] 10/25/2022
--- OUTSIDE RECORDS SUMMARY | 2025-03-06 11:22 | XMS_ITS | Clinical Summary ---
Author Organization [facility] Address [address] [place] [address] Care Team Providers Care Landscape Painter Name Role Phone Corwin San MD Primary [...] Panel) 08/04/2023 Colorectal Cancer Screening: Colonoscopy 08/04/2023 Falls Risk Assessment 08/04/2023 Hepatitis C Screening 08/04/2023 Social Influencers of Health Screening 08/04/2023 Depression Screening 07/05/2024 COVID-19 Vaccine (2023-2 5 season) 2025 Influenza Vaccine (#1) 2025 RSV Immunization Adult Patie nts (1 [...] age to complete this topic Care Teams Landscape Painter Relationship Specialty Start Date End Date Corwin San MD [address] [place], [place] PCP - General Internal Medicine 02/25/17
--- OUTSIDE RECORDS SUMMARY | 2025-03-06 11:22 | XMS_ITS | Clinical Summary ---
Author Organization [facility] Address [address] [place] [address] Care Team Providers Care Hospice Office Coordinator Name Role Phone Unknown Primary Care Provider [phone] Allergies No known active allergies Medications No [...] 75 10/25/2022 10:13 AM EDT Temperature 36.5 C (97.7 F) 10/25/2022 10:13 AM EDT Respiratory Rate - - Oxygen Saturation 96% 10/25/2022 10:13 AM EDT Inhaled Oxygen Concentration - - Weight 92.1 kg (203 lb) 10/25/2022 10:13 AM EDT Height - - Body Mass Index - - Plan of Treatment Health Maintenance Due Date Last Done Comments Advance Care Planning 1955 Hepatitis C Virus Screening 1955 DTaP/Tdap/Td Vaccines (1 - Tdap) 1973 Colonoscopy 1999 Pneumococcal Vaccines 50+ (1 of 1 - PCV) 02/04/2004 Zoster (Shingles) Vaccine (1 of 2) 02/04/2004 COVID-19 Vaccine (3 - 2023-2 5 season) 2024 11/01/2020, 10/04/2020 Influenza Vaccine 02/02/2025 04/03/2020 RSV Vaccine 60 years and older and Patients (1 - 1-dose 75+ series) 2029 Hepatitis B Vaccines Aged Out No long er eligible based on patient's age to complete this [place] [address] MEDICARE PART A & B [facility] Care Teams Hospice Office Coordinator Relationship Specialty Start Date End Date Unknown Unknow Provider Address PCP - General 10/25/22
--- OUTSIDE RECORDS SUMMARY | 2025-03-06 11:22 | XMS_ITS | Clinical Summary ---
[facility] Organization [facility] Address [address] [place] [address] Care Team Providers Care District Ranger Name Role Phone Corwin San MD Primary Care Provider [phone] Allergies No known active allergies Medications Medication [...] 71 10/27/2022 3:04 PM EDT Temperature 36.6 C (97.9 F) 10/27/2022 3:04 PM EDT Respiratory Rate 17 10/27/2022 3:04 PM EDT [...] 1 - PCV) 2019 Influenza Vaccine (#1) 2025 2, 04/02/2021, 04/03/2020, Additional history exists DTap [...] age to complete this topic Care Teams District Ranger Relationship Specialty Start Date End Date Corwin San MD PCP - General Internal Medicine 02/25/17
== END 2025-03-06 10:32 | disposition home or self-care (01) ==
LOC: HO.HUSH 10:01
PROVIDERS: PCP Internal Medicine; Visit Provider Urology
DX: N52.01 Erectile dysfunction due to arterial insufficiency (principal); N40.1 Benign prostatic hyperplasia with lower urinary tract symptoms; R35.1 Nocturia
CPT/HCPCS: 99214; G2211

== ENCOUNTER 2025-06-05 09:45 | Outpatient (AMB) | payer MEDICARE, BC, SELFPAY ==
--- NOTE | 2025-06-05 09:48 | MHC.OFFVIS ---
Intake Visit Reasons: Uroflow (NO UA) SET Intake Note: pt presents today for:UroFlow urology medications: tadalafil, tamsulosin, testosterone blood thinners: none PVR: 5 mls Ui Ux Developer Required: No Accompanied by: Self / Same As Patient Allergies No Known Allergies Allergy (Verified 06/05/25 09:48) HPI Comments Details: Mr Bird is a very pleasant Greenland[place] male. He is a patient of Dr San. He is seen for the following urologic conditions. - Hypogonadism - erectile dysfunction Uroflow evaluation Minimal benefit with tamsulosin Trial of terazosin with uroflow Q max 10.0, average 4.5, voided volume 65cc, flow index 0.7 Recommend prostate intervention Has been on testosterone gel Previously Tamsulosin for LUTS On demand tadalafil 20 mg Lower urinary tract symptoms Nocturia x3 No prior medications Hypogonadism:? Stable with current therapy Continue with weekly testosterone administration Review in 6 months with lab work ? He presents today for?further evaluation and followup of his hypogonadism, ?- prior evaluation previously with Dr. San. Testosterone approximately 250. Poor respondent to testosterone creams..? Initial symptoms include? erectile dysfunction ?Yes ? decreased libido ?Yes ? change in mood/depression ?Yes ? in muscle size/strength ?Yes ? increased fatigue/malaise ?Yes ? The onset of symptoms has been?gradual, over the past few years.? Erectile status?baseline ARJUN Score, nocturnal erections occur but are not comparable to sexual stimulation.? Laboratory results?baseline , testosterone < 250 ?- Feb 2016 , testosterone 295/344, , estradiol 16, , calculated bioavailable testosterone 150. Thyroid intact ?Testosterone - 04/19 384, 1 ?08/20 156,?09/18 267,?04/20 247 ?01/19 T 94, PSA 1.6, 07/23 T 842 PSA 7.2, 01/20 T 500, PSA 1.5. 12/24 T 260 PSA 0.5 47, 08/28 T 265, 04/27 pending T. 08/29 281 0.9 43, 02/26 176 - ? Current therapy includes?injectable exogenous testosterone - 0.35 2x per week.? Prior therapy includes?testosterone, injectable.? Diagnosis based on history and laboratory results?combined testicular insufficiency.? - Trial AndroGel repeat [facility] Medical History Elevated PSA Erectile dysfunction due to arterial insufficiency Hypogonadism in male Review of Systems Const Denies chills and Denies fever(s) Card Reports no additional complaints and Denies syncope Resp Denies cough GI Denies abdominal pain and Denies heartburn Reports as per HPI and Denies change in libido Neuro Denies syncope Psych Denies change in libido Endo Denies change in libido Physical Exam Const General: cooperative, healthy appearing, comfortable and no acute distress Orientation/consciousness: patient oriented x3 HEENT Face and sinus: Yes normal facial exam Mouth: moist mucous membranes Neck Neck: Yes normal visual inspection, Yes full ROM and Yes trachea midline Chest Chest palpation & inspection: normal inspection of the chest Resp Effort & Inspection: normal respiratory effort, able to speak in complete sentences and no respiratory distress GI Inspection: Yes normal to inspection Back/Spine/Pelvis Cervical Spine: normal cervical lordosis Thoracic/Lumbar Spine: thoracic and lumbar spine normal to inspection Skin General skin exam: no rashes or lesions noted Neuro General: patient oriented x3, gait normal, tone normal and moves all extremities Extrem General: Yes normal to inspection and Yes capillary refill normal Office Procedures AMB Uroflow Complex uroflow performed by: Aldo Torres Maximum urinary flow rate (mL/second): 10 Voiding time (seconds): 14 Voided volume (mL): 65 [id number] Procedure code (CPT) selection complete Assessment & Plan Assessment & Plan (1) Erectile dysfunction due to arterial insufficiency: Code(s): N52.01 - Erectile dysfunction due to arterial insufficiency Category: Medical (2) Nocturia associated with benign prostatic hyperplasia: Code(s): N40.1 - Benign prostatic hyperplasia with lower urinary tract symptoms; R35.1 - Nocturia Category: Medical Plan We discussed the nature of the decision and reasonable options for performing a prostate intervention. Interventions include TURP, GreenLight laser enucleation of the prostate, GreenLight laser ablation of the prostate, transurethral incision of the prostate, and I-Tend prostate procedure. Options such as medical therapy were discussed. The relative uncertainties and benefits related to each alternate procedure were adequately discussed. General surgical risks including, but not limited to, pain, bleeding, infection, myocardial infarction, pulmonary embolus, deep vein thrombosis and cerebrovascular accident which may result in further hospitalization were discussed. Full disclosure of the procedure as well as all major risks, benefits and complications were discussed including but not limited to damage to the urethra or bladder neck, recurrent BPH, retrograde ejaculation, bladder infection, urge, de ina frequency, incomplete emptying, dysuria, remote chance of erectile dysfunction, epididymitis, and meatal stenosis. The success rate of the procedure was discussed. Success of the procedure in the short-term does not necessarily guarantee that long-term success will be maintained. Suitable follow up will need to be maintained. The patient showed understanding of discussion. An opportunity was provided for questions to be answered and wishes to proceed with the following procedure. - plasma button prostate incision Orders: Orders AMB Uroflow Today E29.1 - Testicular hypofunction Medications: Changed From terazosin 5 mg PO BEDTIME 30 days 30 caps 2RF E29.1 - Testicular hypofunction To terazosin 10 mg PO BEDTIME 30 caps 2RF 30 days E29.1 - Testicular hypofunction Patient Instructions: This note is constructed using voice recognition software. While every effort has been made to ensure accuracy traffic attendant errors may have been included. Imaging studies, laboratory and physical exam results were discussed and reviewed in detail. No major barriers to patient understanding were identified. An opportunity to ask questions regarding the treatment plan was provided. All questions were answered. The patient expressed understanding and agreement with the above treatment plan. The patient is aware they should contact our office by phone for worsening of their current condition or the appearance of new urologic symptoms. Compliance is encouraged with any medications and followup testing that is ordered. It is a privilege to participate in the urologic care of your patient. If you have any questions or concerns regarding treatment for the above conditions, or other urologic issues, please do not hesitate to contact me. The office telephone contact is [phone]. Sincerely, Dr Aldo Torres MD, [facility] - Urology Compassionate Specialist Care for the Genitourinary System Coding Level of Care Code Est Pt Level 4 (11322) Complex visit Add On G2211 Diagnoses Erectile dysfunction due to arterial insufficiency N52.01 Nocturia associated with benign prostatic hyperplasia N40.1; R35.1
--- OUTSIDE RECORDS SUMMARY | 2025-06-05 10:48 | XMS_ITS | Clinical Summary ---
Author Organization [facility] Address [address] [place] [address] Care Team Providers Care Manager Room Name Role Phone Corwin San MD Primary [...] Health Maintenance Due Date Last Done Comments Colorectal Cancer Screening: Colonoscopy 1954 DTaP,Tdap,and Td Vaccines (1 - Tdap) 1973 Pneumococcal Vaccine: 50+ Ye ars (1 of 1 - PCV) 02/04/2004 Zoster Vaccines (1 of 2) 02/04/2004 Abdominal Aortic Aneurysm (A AA) Screen 08/04/2023 Cholesterol Screening (Lipid Panel) 08/04/2023 Falls Risk Assessment 08/04/2023 Hepatitis C Screening 08/04/2023 Social Influencers of Health Screening 08/04/2023 Depression Screening 07/05/2024 COVID-19 Vaccine (2024-2 6 season) 2025 Influenza Vaccine (#1) 2025 RSV [...] age to complete this topic Care Teams Manager Room Relationship Specialty Start Date End Date Corwin San MD [address] [place], [place] PCP - General Internal Medicine 02/25/17
--- OUTSIDE RECORDS SUMMARY | 2025-06-05 10:48 | XMS_ITS | Clinical Summary ---
Author Organization [facility] Address [address] [place] [address] Care Team Providers Care Chemical Processing Equipment Repairer Name Role Phone Corwin San MD Primary Care Provider [phone]- [phone] Allergies No known active allergies Medications Medication [...] age to complete this topic Care Teams Chemical Processing Equipment Repairer Relationship Specialty Start Date End Date Corwin San MD PCP - General Internal Medicine 02/25/17
--- OUTSIDE RECORDS SUMMARY | 2025-06-05 10:48 | XMS_ITS | Clinical Summary ---
Author Organization [facility] Address [address] [place] [address] Care Team Providers Care Coal Shoveler Name Role Phone Unknown Primary Care Provider [phone] Allergies No known active allergies Medications No [...] Vaccine (1 of 2) 02/04/2004 Influenza Vaccine 02/02/2025 04/03/2020 COVID-19 Vaccine (3 - 2024-2 6 season) 2025 11/01/2020, 10/04/2020 RSV Vaccine 50 years and older and Patients (1 - 1-dose 75+ series) 2029 Hepatitis B Vaccines Aged Out No long er eligible based on patient's age to complete this [place] [address] MEDICARE PART A & B [facility] Care Teams Coal Shoveler Relationship Specialty Start Date End Date Unknown Unknow Provider Address PCP - General 10/25/22
== END 2025-06-05 10:45 | disposition home or self-care (01) ==
LOC: HO.HUSH 09:46
PROVIDERS: PCP Internal Medicine; Visit Provider Urology
DX: N52.01 Erectile dysfunction due to arterial insufficiency (principal); N40.1 Benign prostatic hyperplasia with lower urinary tract symptoms; R35.1 Nocturia
CPT/HCPCS: 99214; G2211

== ENCOUNTER → 2025-06-05 09:45 | Outpatient (BNVA) | payer MEDICARE, BC, SELFPAY | PROVIDERS: PCP Internal Medicine; Visit Provider Urology | DX: N40.1 Benign prostatic hyperplasia with lower urinary tract symptoms (principal); R35.1 Nocturia; N52.01 Erectile dysfunction due to arterial insufficiency; E29.1 Testicular hypofunction | CPT/HCPCS: 51741; 99212 ==